=== PATIENT | female | born 1945 | race Caucasian/White ===

== ENCOUNTER → 2016-04-05 | Outpatient (CLI) | payer MEDICARE ==
[~2016-04-05] MED LIST: GLIP5TAB2; GLUC500T; LOPI600T; PERC5TAB8; PRED20TA; SIMV80TA
--- NOTE | 2016-04-05 14:51 | RADONC ---
RADIATION ONCOLOGY FOLLOWUP NOTE DATE: 04/05/2016 CHART NUMBER: [id number]. DIAGNOSIS: Left breast cancer. STAGE: IA, [id number]. ECOG PERFORMANCE STATUS: 0 FOLLOWUP NOTE: Ms. Henriquez is a very pleasant 70-year-old white female with the diagnosis of a stage IA, moderately differentiated infiltrating ductal carcinoma of the left breast who is presenting to us today for routine followup visit 1 year and 1 month post completion of external beam radiation therapy. The patient presents today reporting that she is doing quite well with no complaints at this time related to her radiation therapy or disease. She has no breast or bone pain. REVIEW OF SYSTEMS: The patient's review of systems is noncontributory. She denies nausea, vomiting, fevers, chills, night sweats, diplopia, headaches, anxiety or depression, anorexia, weight loss, visual disturbances, chest pain, urinary or bowel difficulties, bone pain, or neurological problems. PHYSICAL EXAMINATION: The patient is a well-developed, well-nourished white female in no acute distress. HEENT exam is normocephalic, atraumatic. Extraocular movements are intact. There is no palpable cervical, supraclavicular, infraclavicular, axillary, or inguinal lymphadenopathy present. Lungs are clear to auscultation and percussion. Heart has a regular rate and rhythm. Abdomen is benign with no hepatosplenomegaly, masses, or tenderness. Breast examination reveals no masses or discharge bilaterally. Skeletal examination reveals no tenderness to pressure or percussion of the bony skeleton. Extremities reveal no clubbing, cyanosis, or edema. Neurologic exam is grossly intact, as is the remainder of the physical examination. ASSESSMENT: The patient is clinically IZABELA at this time and will be seen by us again in 6 months for further followup. She will also continue to be followed by her other physicians as well. cc: Joyce Mckeon MD *PAULINE Godinez
== END ==
LOC: M ONCR 14:14
PROVIDERS: ATTEND Radiology Radiation Oncology
DX: C50.412 Malignant neoplasm of upper-outer quadrant of left female breast (principal)

== ENCOUNTER → 2016-07-10 | Outpatient (CLI) | payer MEDICARE ==
[~2016-07-10] VITALS: Ht 172.7 cm; Wt 70.8 kg
[~2016-07-10] MED LIST changes: +ATOR1TAB21 PO; +GEMF600T PO; +GLIP5TAB15 PO; +JANU100T PO; +LETR2.5T PO; +LIDOCAINE 2% INJ 100 MG/5 ML SDV (FOR ANES.) As Ordered ONE; +METF500T PO; +MULT1TAB10 PO; +NS 1,000 ML IV ONE; +PHENYLephrine HCL 500 MCG/5 ML (100MCG/ML) SYRINGE (J2370) As Ordered ONE; +PROPOFOL 500 MG/50 ML VIAL As Ordered ONE; +VICT18IN SC; +VITA-130 PO; +VITA100037 PO; +VITA400C2 PO
--- NOTE | 2016-07-10 07:46 | ROOR ---
Patient Name: Missy Henriquez Procedure Date: 07/10/2016 7:28 AM Date of : 1945 Age: 71 Room: [facility] Gender: Female Note Status: Finalized Procedure: Upper GI endoscopy + Biopsies Indications: Heartburn, Family history of gastric cancer Providers: Demarcus Echeverria MD Referring MD: Inocencio Valderrama NP Requesting Provider: Medicines: Monitored Anesthesia Care Complications: No immediate complications. Procedure: Pre-Anesthesia Assessment: - The heart rate, respiratory rate, oxygen saturations, blood pressure, adequacy of pulmonary ventilation, and response to care were monitored throughout the procedure. The Endoscope was introduced through the mouth, and advanced to the second part of duodenum. The upper GI endoscopy was accomplished without difficulty. The patient tolerated the procedure well. Findings: The Z-line was irregular and was found 35 cm from the incisors. Multiple biopsies were obtained with cold forceps for evaluation to rule out Kang's Esophagus randomly at the gastroesophageal junction. Non-severe esophagitis with no bleeding was found 35 cm from the incisors. A small hiatal hernia was present. No other significant abnormalities were identified in a careful examination of the stomach. Biopsies were taken with a cold forceps in the gastric antrum for Helicobacter pylori testing. The exam of the duodenum was otherwise normal. Impression: - Z-line irregular, 35 cm from the incisors. - Non-severe reflux esophagitis. Rule out Kang's esophagus. - Small hiatal hernia. - Multiple biopsies were obtained at the gastroesophageal junction. - Biopsies were taken with a cold forceps for Helicobacter pylori testing. - The examination was otherwise normal. Recommendation: - Patient has a contact number available for emergencies. The signs and symptoms of potential delayed complications were discussed with the patient. Return to normal activities tomorrow. Written discharge instructions were provided to the patient. - Resume previous diet. - Discharge patient to home. - Follow an antireflux regimen. - Continue present medications. - Await pathology results. - Telephone GI clinic for pathology results in 1 week. - Return to referring physician. - Check Portal Online for Path Results.([email or web address]) - The findings and recommendations were discussed with the patient's family. Demarcus Echeverria MD Demarcus Echeverria MD 07/10/2016 7:46:01 AM This report has been signed electronically. Number of Addenda: 0 Note Initiated On: 07/10/2016 7:28 AM Estimated Blood Loss: Estimated blood loss: none.
--- NOTE | 2016-07-10 08:12 | ROOR ---
Patient Name: Missy Henriquez Procedure Date: 07/10/2016 7:28 AM Date of : 1945 Age: 71 Room: [facility] Gender: Female Note Status: Finalized Procedure: Colonoscopy to Cecum + Cold Snare Polypectomy + Hemoclips Indications: Colon cancer screening in patient at increased risk: Colorectal cancer in mother Providers: Demarcus Echeverria MD Referring MD: Inocencio Valderrama NP Requesting Provider: Medicines: Monitored Anesthesia Care Complications: No immediate complications. Procedure: Pre-Anesthesia Assessment: - The heart rate, respiratory rate, oxygen saturations, blood pressure, adequacy of pulmonary ventilation, and response to care were monitored throughout the procedure. The Colonoscope was introduced through the anus and advanced to the cecum, identified by appendiceal orifice and ileocecal valve. The colonoscopy was performed without difficulty. The patient tolerated the procedure well. The quality of the bowel preparation was excellent. Findings: The perianal and digital rectal examinations were normal. Non-bleeding internal hemorrhoids were found during retroflexion. The hemorrhoids were small and Grade I (internal hemorrhoids that do not prolapse). Scattered small-mouthed diverticula were found in the recto-sigmoid colon, sigmoid colon and descending colon. A medium polyp was found in the hepatic flexure. The polyp was sessile. The polyp was removed with a cold snare. Resection and retrieval were complete. To prevent bleeding after the polypectomy, two hemostatic clips were successfully placed (MR conditional). There was no bleeding at the end of the procedure. The exam was otherwise without abnormality on direct and retroflexion views. Impression: - Non-bleeding internal hemorrhoids. - Diverticulosis in the recto-sigmoid colon, in the sigmoid colon and in the descending colon. - One medium polyp at the hepatic flexure, removed with a cold snare. Resected and retrieved. Clips (MR conditional) were placed. - The examination was otherwise normal on direct and retroflexion views. - The exam was otherwise normal to the cecum. Recommendation: - Patient has a contact number available for emergencies. The signs and symptoms of potential delayed complications were discussed with the patient. Return to normal activities tomorrow. Written discharge instructions were provided to the patient. - High fiber diet. - Discharge patient to home. - Continue present medications. - Await pathology results. - Telephone GI clinic for pathology results in 1 week. - Repeat colonoscopy for surveillance based on pathology results. - Check Portal Online for Path Results.([email or web address]) - The findings and recommendations were discussed with the patient's family. Demarcus Echeverria MD Demarcus Echeverria MD 07/10/2016 8:12:29 AM This report has been signed electronically. Number of Addenda: 0 Note Initiated On: 07/10/2016 7:28 AM Estimated Blood Loss: Estimated blood loss: none.
[2016-07-10 08:29] VITALS: BP 117/65
== END | disposition home or self-care (01) ==
LOC: M OPP 06:41
PROVIDERS: ATTEND Internal Medicine Gastroenterology
DX: Z12.11 Encounter for screening for malignant neoplasm of colon (principal); D12.3 Benign neoplasm of transverse colon; K57.30 Diverticulosis of large intestine without perforation or abscess without bleeding; K64.0 First degree hemorrhoids; Z80.0 Family history of malignant neoplasm of digestive organs; R12 Heartburn; K22.8 Other specified diseases of esophagus; K44.9 Diaphragmatic hernia without obstruction or gangrene; K21.0 Gastro-esophageal reflux disease with esophagitis; E78.5 Hyperlipidemia, unspecified; E11.9 Type 2 diabetes mellitus without complications; M19.90 Unspecified osteoarthritis, unspecified site; M81.0 Age-related osteoporosis without current pathological fracture; Z85.3 Personal history of malignant neoplasm of breast; Z92.3 Personal history of irradiation; Z92.21 Personal history of antineoplastic chemotherapy; Z78.0 Asymptomatic menopausal state; Z87.891 Personal history of nicotine dependence; Z88.0 Allergy status to penicillin; Z88.8 Allergy status to other drugs, medicaments and biological substances; Z88.5 Allergy status to narcotic agent; Z91.041 Radiographic dye allergy status; Z91.048 Other nonmedicinal substance allergy status; Z79.84 Long term (current) use of oral hypoglycemic drugs; Z79.899 Other long term (current) drug therapy
CPT/HCPCS: 43239; 45385; 88305; J2370

== ENCOUNTER → 2016-07-27 | Outpatient (CLI) | payer MEDICARE ==
[~2016-07-27] MED LIST changes: -LIDOCAINE 2% INJ 100 MG/5 ML SDV (FOR ANES.) As Ordered ONE; -NS 1,000 ML IV ONE; -PHENYLephrine HCL 500 MCG/5 ML (100MCG/ML) SYRINGE (J2370) As Ordered ONE; -PROPOFOL 500 MG/50 ML VIAL As Ordered ONE
--- NOTE | 2016-07-27 10:16 | REPMRS ---
Patient History The patient states she had a clinical breast exam in May 2016. Patient has history of cancer in the left breast at age 69. Family history of colorectal cancer in mother at age 60, unknown cancer in maternal aunt at age 85, unknown cancer in maternal grandmother at age 70, and colorectal cancer in maternal uncle at age 82. Malignant radio exam breast specimen of the left breast, June 22, 2014. Malignant localization of breast nodule of the left breast, June 22, 2014. Malignant US guided breast biopsy of the left breast, May 05, 2014. Benign excisional biopsy of both breasts. Took hormonal contraceptives for 6 years. Digital Mammo Screening Bilat: July 27, 2016 - Exam #: [id number] Bilateral CC and MLO view(s) were taken. Technologist: Irma Romeoologist Prior study comparison: July 27, 2015, [facility] May 05, 2014, left breast digital mammo diagnostic unilateral [facility]. January 15, 2014, bilateral bilat screen digital mammo, [facility] ([facility] FINDINGS: There are scattered fibroglandular densities. There are stable post treatment changes in the left breast. There has been no other change in the appearance of the mammogram from the prior studies. There is a mild amount of scattered fibroglandular density which is fairly symmetric. There is no interval development of dominant mass, architectural distortion, or clustered microcalcification suggestive of malignancy. ASSESSMENT: BI-RADS/ACR category 1 mammogram. Negative. Recommendation Routine screening mammogram in 1 year (for women over age 40). This mammogram was interpreted with the aid of an FDA-approved computer-aided dectection system. Electronically Signed By: Armando Gamez MD 07/27/16 [id number]
== END ==
LOC: M RAD 09:40
PROVIDERS: ATTEND Radiology Radiation Oncology
DX: Z12.31 Encounter for screening mammogram for malignant neoplasm of breast (principal)

== ENCOUNTER → 2016-10-04 | Outpatient (CLI) | payer MEDICARE ==
[~2016-10-04] MED LIST changes: +GLIP1TAB49 PO; -GLIP5TAB15 PO; -LETR2.5T PO; +LETR2.5T2 PO; -METF500T PO; +METF500T13 PO; -VITA-130 PO; -VITA100037 PO; +VITA100067 PO; -VITA400C2 PO; +VITA400C7 PO; +VITA500T PO
--- NOTE | 2016-10-04 10:59 | RADONC ---
RADIATION ONCOLOGY FOLLOWUP NOTE: DATE: 10/04/2016 CHART NUMBER: [id number]. DIAGNOSIS: Left breast cancer. STAGE: IA, [id number] ECOG PERFORMANCE STATUS: Zero. FOLLOWUP NOTE: Ms. Henriquez is a very pleasant, 71-year-old white female with the diagnosis of a stage IA, moderately differentiated infiltrating ductal carcinoma of the left breast who is presenting to us today for routine followup visit 1 year and 9 months post completion of external beam radiation therapy. The patient presents today reporting that she is doing quite well with no complaints at this time related to her radiation therapy or disease. She has no breast or bone pain. REVIEW OF SYSTEMS: The patient's review of systems is noncontributory. Denies nausea, vomiting, fevers, chills, night sweats, diplopia, headaches, anxiety or depression, anorexia, weight loss, visual disturbances, chest pain, urinary or bowel difficulties, bone pain, or neurological problems. PHYSICAL EXAMINATION: The patient is a well-developed, well-nourished, 71-year-old white female, in no acute distress. HEENT exam is normocephalic, atraumatic. Extraocular movements are intact. There is no palpable cervical, supraclavicular, infraclavicular, axillary, or inguinal lymphadenopathy present. Lungs are clear to auscultation and percussion. Heart has a regular rate and rhythm. Abdomen is benign with no hepatosplenomegaly, masses, or tenderness. Breast examination reveals no masses or discharge bilaterally. Skeletal examination reveals no tenderness to pressure or percussion of the bony skeleton. Extremities reveal no clubbing, cyanosis, or edema. Neurologic exam is grossly intact, as is the remainder of the physical examination. ASSESSMENT: The patient is clinically IZABELA at this time and will be seen by us again in 6 months for further followup. She will also continue to be followed by her other physicians as well. cc: Joyce Mckeon MD, FACP PAULINE Godinez
== END ==
LOC: M ONCR 10:24
PROVIDERS: ATTEND Radiology Radiation Oncology
DX: C50.412 Malignant neoplasm of upper-outer quadrant of left female breast (principal)

== ENCOUNTER → 2017-04-18 | Outpatient (CLI) | payer MEDICARE | LOC: M ONCR 13:30 | DX: C50.412 Malignant neoplasm of upper-outer quadrant of left female breast (principal) | CPT/HCPCS: G0463 ==

== ENCOUNTER 2017-05-25 10:16 | Outpatient (CLI) | payer MEDICARE | END 2017-05-28 | LOC: M CARPUL 10:16 | DX: R01.1 Cardiac murmur, unspecified (principal); R93.1 Abnormal findings on diagnostic imaging of heart and coronary circulation | CPT/HCPCS: 93306 ==

== ENCOUNTER → 2017-07-31 | Outpatient (CLI) | payer MEDICARE | LOC: M RAD 08:41 | DX: Z12.31 Encounter for screening mammogram for malignant neoplasm of breast (principal); C50.912 Malignant neoplasm of unspecified site of left female breast; Z79.899 Other long term (current) drug therapy | CPT/HCPCS: 77067 ==

== ENCOUNTER → 2018-01-28 | Outpatient (CLI) | payer MEDICARE | LOC: M WHC 09:25 | DX: M85.88 Other specified disorders of bone density and structure, other site (principal); M85.80 Other specified disorders of bone density and structure, unspecified site; Z79.899 Other long term (current) drug therapy | CPT/HCPCS: 77080 ==

== ENCOUNTER → 2018-08-01 | Outpatient (CLI) | payer MEDICARE ==
[~2018-08-01] MED LIST changes: +D 50CAP2 PO; +FOSA70TA PO; +GABA-1171 PO; -GEMF600T PO; +GEMF600T5 PO; -GLIP1TAB49 PO; +GLIP5TAB20 PO; +MULTCAP PO; +VITA-157 PO
--- NOTE | 2018-08-01 12:12 | REPMRS ---
Patient History The patient states she had a clinical breast exam in June 2018.Family history of colorectal cancer at age 60 in mother, unknown cancer at age 85 in maternal aunt, colorectal cancer at age 82 in maternal uncle, unknown cancer at age 70 in maternal grandmother. Malignant radio exam breast specimen of the left breast, June 22, 2014. Malignant localization of breast nodule of the left breast, June 22, 2014. Malignant US guided breast biopsy of the left breast, May 05, 2014. Benign excisional biopsy of both breasts. Took hormonal contraceptives for 6 years. Taking tamoxifen for 3 years. 3D TOMOSYNTHESIS WAS PERFORMED. Digital Mammo Screening Bilat: August 01, 2018 - Exam #: [id number] Bilateral CC and MLO view(s) were taken. Technologist: Irma Fishmanologist Prior study comparison: July 31, 2017, bilateral digital mammo screening bilat performed at [facility]. July 27, 2016, bilateral digital mammo screening bilat performed at [facility]. FINDINGS: There are scattered fibroglandular densities. There is no evidence of cancer on this mammogram. No significant changes when compared with prior studies. Assessment: BI-RADS/ACR category 2 mammogram. Benign Findings. Recommendation Routine screening mammogram of both breasts in 1 year (for women over age 40). This mammogram was interpreted with the aid of an FDA-approved computer-aided dectection system. Electronically Signed By: Julian Rogers MD 08/01/18 [id number]
== END ==
LOC: M RAD 10:20
PROVIDERS: ATTEND Obstetrics & Gynecology
DX: Z12.31 Encounter for screening mammogram for malignant neoplasm of breast (principal); Z85.3 Personal history of malignant neoplasm of breast; Z80.0 Family history of malignant neoplasm of digestive organs

== ENCOUNTER → 2018-11-13 | Outpatient (CLI) | payer MEDICARE ==
--- NOTE | 2018-11-15 08:20 | RADONC ---
RADIATION ONCOLOGY FOLLOWUP NOTE DATE: 11/13/2018 CHART NUMBER: [id number] DIAGNOSIS: Left breast cancer. STAGE: Stage I A, [id number] ECOG PERFORMANCE STATUS: 0. FOLLOWUP NOTE: Mrs. Vaughn is a 73-year-old female who has a diagnosis of a moderately differentiated, stage I A, ductal carcinoma involving the left breast who presents today for followup visit after having completed a course of adjuvant radiotherapy on 02/04/2015. She has done well since her radiotherapy and she specifically denies any nausea, vomiting, coughing, sputum production or hemoptysis. Her energy level is excellent and her last mammogram, which I have available to me at this time, was performed on 08/01/2018 and was negative. She reports no other symptoms such as diplopia, headaches, anxiety, depression, anorexia, weight loss, chest pain, urinary or bowel difficulties bone pain or neurologic issues. PHYSICAL EXAMINATION: The patient is a well-developed, well-nourished lady. HEENT: Normocephalic. EOMs intact. PERRLA. Fundi benign. Lungs: Clear to auscultation and percussion. Heart: Regular without murmurs. Abdomen: Without evidence of hepatomegaly, masses, deep abdominal tenderness. Breasts: Exam reveals no masses bilaterally and no significant skin abnormalities. Skeletal system without percussive bony tenderness. Extremities: Without cyanosis, clubbing or edema. Neurologic: Examination grossly physiologic and nonfocal. IMPRESSION: The patient is clinically IZABELA at this time. PLAN: She will be seen by us again in approximately 1 year or p.r.n., and we have advised her to return to her referring physicians as per their instructions. cc: PAULINE Godinez
== END ==
LOC: M ONCR 13:07
PROVIDERS: ATTEND Radiology Radiation Oncology
DX: C50.412 Malignant neoplasm of upper-outer quadrant of left female breast (principal)

== ENCOUNTER → 2019-08-25 | Outpatient (CLI) | payer MEDICARE ==
[~2019-08-25] MED LIST changes: +CENTCHW4 PO; +GLIP5TAB8 PO; +GUAI1TAB72 PO; +METF-839 PO; +VITA-243 PO; +VITA500075 PO; -VITA500T PO; +[UNRECOGNIZED DRUG - CODE] PO; +vitamin c gummies PO
== END ==
LOC: M LABSMTC 10:29
PROVIDERS: ATTEND Anesthesiology
DX: Z03.818 Encounter for observation for suspected exposure to other biological agents ruled out (principal); Z11.59 Encounter for screening for other viral diseases
CPT/HCPCS: C9803; U0003

== ENCOUNTER 2019-08-28 09:44 | Day surgery (SDC) | payer MEDICARE ==
[~2019-08-28] VITALS: Ht 170.2 cm; Wt 70.8 kg
[~2019-08-28 09:44] MED LIST changes: +CEFUROXIME 1MG/0.1ML INTRACAMERAL INJ As Ordered ONE; +DUOVISC (0.50ML VISCOAT/0.55ML PROVISC) OPHTH KIT As Ordered ONE; +LIDOCAINE 1% MDV 20ML VIAL SQ PRN; +MIDAZOLAM INJ 2MG/2ML VIAL (J2250 PER 1MG) As Ordered ONE; +OFLOXACIN 0.3 % (OCUFLOX) OPTH SOL 5ML OD ONE; +PHENYLEPHRINE 2.5% OPHTH SOL 2ML OD ONE; +POVIDONE-IODINE 5% OPHTH PREP SOL 30ML As Ordered ONE; +PROPARACAINE 0.5% OPHTH SOL 15ML OD ONE; +TROPICAMIDE 1% OPHTH SOLN 2ML OD ONE; +fentaNYL 100 MCG/2 ML INJECTION (J3010) As Ordered ONE
== END 2019-08-28 11:34 | disposition home or self-care (01) ==
LOC: M SDC 09:44
PROVIDERS: ATTEND Ophthalmology
DX: H25.11 Age-related nuclear cataract, right eye (principal); Z53.09 Procedure and treatment not carried out because of other contraindication; Z79.899 Other long term (current) drug therapy
CPT/HCPCS: J2250; J3010

== ENCOUNTER → 2019-09-08 | Outpatient (CLI) | payer MEDICARE ==
[~2019-09-08] MED LIST changes: -CEFUROXIME 1MG/0.1ML INTRACAMERAL INJ As Ordered ONE; -DUOVISC (0.50ML VISCOAT/0.55ML PROVISC) OPHTH KIT As Ordered ONE; -LIDOCAINE 1% MDV 20ML VIAL SQ PRN; -MIDAZOLAM INJ 2MG/2ML VIAL (J2250 PER 1MG) As Ordered ONE; -OFLOXACIN 0.3 % (OCUFLOX) OPTH SOL 5ML OD ONE; -PHENYLEPHRINE 2.5% OPHTH SOL 2ML OD ONE; -POVIDONE-IODINE 5% OPHTH PREP SOL 30ML As Ordered ONE; -PROPARACAINE 0.5% OPHTH SOL 15ML OD ONE; -TROPICAMIDE 1% OPHTH SOLN 2ML OD ONE; -fentaNYL 100 MCG/2 ML INJECTION (J3010) As Ordered ONE
== END ==
LOC: M LABSMTC 12:10
PROVIDERS: ATTEND Anesthesiology
DX: Z01.818 Encounter for other preprocedural examination (principal); Z11.59 Encounter for screening for other viral diseases
CPT/HCPCS: C9803; U0003

== ENCOUNTER 2019-09-11 08:18 | Day surgery (SDC) | payer MEDICARE ==
[~2019-09-11] VITALS: Ht 170.2 cm; Wt 71.2 kg
[~2019-09-11 08:18] MED LIST changes: +CEFUROXIME 1MG/0.1ML INTRACAMERAL INJ As Ordered ONE; +DUOVISC (0.50ML VISCOAT/0.55ML PROVISC) OPHTH KIT As Ordered ONE; +OFLOXACIN 0.3 % (OCUFLOX) OPTH SOL 5ML OD ONE; +PHENYLEPHRINE 2.5% OPHTH SOL 2ML OD ONE; +POVIDONE-IODINE 5% OPHTH PREP SOL 30ML As Ordered ONE; +PROPARACAINE 0.5% OPHTH SOL 15ML OD ONE; +TROPICAMIDE 1% OPHTH SOLN 2ML OD ONE
[2019-09-11] MEDS ORDERED: MIDAZOLAM INJ 2MG/2ML VIAL (J2250 PER 1MG) As Ordered ONE (09:37)
[2019-09-11] MEDS ORDERED: fentaNYL 100 MCG/2 ML INJECTION (J3010) As Ordered ONE (09:37)
[2019-09-11] MEDS ORDERED: HumaLOG INSULIN (NovoLOG) PER UNIT As Ordered ONE (09:45)
[2019-09-11] MEDS ORDERED: BSS IRR 500ML/OMIDRIA 4ML IRR BAG (OR ONLY) (J1097 PER ML) As Ordered ONE (09:49)
[2019-09-11] MEDS ORDERED: HumaLOG INSULIN (NovoLOG) PER UNIT SC ONE (10:00)
[2019-09-11 10:45] VITALS: BP 133/63
== END 2019-09-11 11:45 | disposition home or self-care (01) ==
LOC: M SDC 08:18
PROVIDERS: ATTEND Ophthalmology
DX: H25.11 Age-related nuclear cataract, right eye (principal); E11.9 Type 2 diabetes mellitus without complications; E78.5 Hyperlipidemia, unspecified; M10.9 Gout, unspecified; K21.9 Gastro-esophageal reflux disease without esophagitis; Z79.899 Other long term (current) drug therapy; Z87.891 Personal history of nicotine dependence; Z79.84 Long term (current) use of oral hypoglycemic drugs; Z85.3 Personal history of malignant neoplasm of breast; Z92.21 Personal history of antineoplastic chemotherapy; Z92.3 Personal history of irradiation; Z91.041 Radiographic dye allergy status; Z88.8 Allergy status to other drugs, medicaments and biological substances
CPT/HCPCS: 66984; J1097; J2250; J3010; V2632

== ENCOUNTER → 2019-10-02 | Outpatient (CLI) | payer MEDICARE ==
[~2019-10-02] MED LIST changes: -CEFUROXIME 1MG/0.1ML INTRACAMERAL INJ As Ordered ONE; -DUOVISC (0.50ML VISCOAT/0.55ML PROVISC) OPHTH KIT As Ordered ONE; -OFLOXACIN 0.3 % (OCUFLOX) OPTH SOL 5ML OD ONE; -PHENYLEPHRINE 2.5% OPHTH SOL 2ML OD ONE; -POVIDONE-IODINE 5% OPHTH PREP SOL 30ML As Ordered ONE; -PROPARACAINE 0.5% OPHTH SOL 15ML OD ONE; -TROPICAMIDE 1% OPHTH SOLN 2ML OD ONE
--- NOTE | 2019-10-26 13:08 | REPMRS ---
Patient History The patient states she has not had a clinical breast exam in over a year. Patient has history of cancer in the left breast at age 69. Family history of colorectal cancer at age 60 in mother, pancreatic cancer at age 85 in maternal aunt, colorectal cancer at age 82 in maternal uncle, pancreatic cancer at age 70 in maternal grandmother. Malignant radio exam breast specimen of the left breast, June 22, 2014. Malignant localization of breast nodule of the left breast, June 22, 2014. Malignant US guided breast biopsy of the left breast, May 05, 2014. Benign excisional biopsy of both breasts. Took hormonal contraceptives for 6 years. Took tamoxifen for 5 years. Digital Woman Screen Mammo: October 02, 2019 - Exam #: [id number] Bilateral CC and MLO view(s) were taken. Technologist: Roma Cooper, Technologist Prior study comparison: August 01, 2018, bilateral digital mammo screening bilat, performed at [facility]. July 31, 2017, bilateral digital mammo screening bilat, performed at [facility]. July 27, 2016, bilateral digital mammo screening bilat, performed at [facility]. FINDINGS: There are scattered fibroglandular densities. The Volpara volumetric breast density category is:B. There are stable post treatment changes in the left breast. There has been no change in the appearance of the mammogram from the prior studies. There is a mild amount of scattered fibroglandular density which is fairly symmetric. There is no interval development of dominant mass, architectural distortion, or grouped microcalcification suggestive of malignancy. 3-D tomosynthesis shows no additional findings. Assessment: BI-RADS/ACR category 2 mammogram. Benign Findings. Recommendation Routine screening mammogram of both breasts in 1 year (for women over age 40). This mammogram was interpreted with the aid of an FDA-approved computer-aided dectection system. Electronically Signed By: Armando Gamez MD 10/26/19 [id number]
== END ==
LOC: M WHC 09:27
PROVIDERS: ATTEND Internal Medicine Hematology & Oncology
DX: Z12.31 Encounter for screening mammogram for malignant neoplasm of breast (principal); Z85.3 Personal history of malignant neoplasm of breast; Z80.0 Family history of malignant neoplasm of digestive organs

== ENCOUNTER → 2019-11-12 | Outpatient (CLI) | payer MEDICARE ==
--- NOTE | 2019-11-12 13:32 | RADONC ---
Radiation Oncology Hx/FUP Radiation Oncology Consult Date of Service: Nov 12, 2019 Pt Identifier Missy Henriquez is a 74 year old female seen for a followup visit today at the department of radiation oncology for a history of left breast cancer pT1cN0(sn)M0 ER+ IA/HER2- grade 2 s/p lumpectomy, adjuvant AC+T chemotherapy and adjuvant whole breast radiation 48.6 Gy to the left breast, followed by 12 Gy tumor bed boost completed 01/05/15. Diagnosis/Treatment History Oncologic History As above Interval History Feels well today, no complaints. Does self exams. Gets her mammograms, last September 2019, was negative. 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 Appetite good and weight stable. Current Therapy Surveillance Stage [id number] Er+ IA/HER2- grade 2 stage IA Social History: Former smoker, quit 1997 Does not drink Allergies / Meds Allergies: Coded Allergies: Contrast Media (Verified Allergy, Intermediate, rash, 08/22/19) adhesive (Verified Allergy, Intermediate, rash, 08/22/19) meperidine (Verified Allergy, Intermediate, rash, 08/22/19) Home Meds Active Scripts Letrozole (Letrozole) 2.5 Mg Tab, 2.5 MG PO DAILY for 30 Days, #30 TAB 5 Refills Prov:TRIPP COBOS MD 10/31/19 Reported Medications Multivit-Min/Iron/Folic/Vit K1 (Centrum Chewables Adults Tab) 1 Each Tab.chew, 1 CHW PO, CHW 08/22/19 Guaifen/Phenyleph/Acetaminophn (Tylenol Sinus Severe Caplet) 1 Each Tablet, 1 EACH PO BIDP PRN for sinus issues, TAB 05/15/19 Cholecalciferol (Vitamin D3) (Vitamin D3) 125 Mcg Capsule, 125 MCG PO DAILY, CAP 05/15/19 [vitamin c gummies] No Conflict Check, 500 MG PO DAILY 05/15/19 Metformin HCl (Metformin HCl) 500 Mg Tablet, 1500 MG PO QHS for 30 Days, #60 TAB 02/04/19 Vitamin E (Dl,Tocopheryl Acet) (Vitamin E) 400 Unit Capsule, 400 UNIT PO, CAP 08/01/18 Gabapentin (Gabapentin) 100 Mg Cap, 200 MG PO QPM 01/31/18 Sitagliptin Phosphate (Januvia) 100 Mg Tab, 100 MG PO DAILY, TAB 06/28/16 Gemfibrozil (Gemfibrozil) 600 Mg Tab, 600 MG PO BID, TAB 06/28/16 Glipizide (Glipizide ER) 5 Mg Tab, 30 MG PO QPM, TAB 06/28/16 Liraglutide (Victoza 2-Jacoby) 18 Mg/3 Ml Inj, 1.8 ML SC QPM, INJ 06/28/16 Atorvastatin Calcium (Atorvastatin Calcium) 20 Mg Tab, 20 MG PO DAILY, TAB 06/28/16 Review of Systems Review of Systems Constitutional: Denies: ROS Unabtainable, Chills, Fever, Malaise, Night Sweats, Weakness, Fatigue, Weight Loss, Lethargy, Normal appetite, Other symptoms Eyes: Denies: Pain, Vision change, Conjunctivae inflammation, Eyelid inflammation, Redness, Other Skin: Denies: Rash, Lesions, Jaundice, Bruising, Other Breast: Denies: New Breast Lumps / Masses, Nipple Retraction, Nipple Discharge, Breast Skin Changes, Breast Pain or Tenderness, Other Breast Complaints Pulmonary: Denies: Dyspnea, Cough, Pleuritic Chest Pain, Other Symptoms Cardiovascular: Denies: Chest Pain, Palpitations, Orthopnea, Paroxysmal Noc. Dyspnea, Edema, Lt Headedness, Other Symptoms Gastrointestinal: Denies: Nausea, Vomiting, Abdominal Pain, Diarrhea, Constipation, Melena, Hematochezia, Other Symptoms Genitourinary: Denies: Dysuria, Frequency, Incontinence, Hematuria, Retention, Other Symptoms Hematologic: Denies: Bruising, Bleeding Excessively, Petecchia, Purpura, Enlarged Lymph Nodes, Other Hematologic Endocrine: Denies: Polydipsia, Polyphagia, Polyuria, Heat Intolerance, Cold Intolerance, Other Endocrine Sx Musculoskeletal: Denies: Neck pain, Shoulder pain, Arm pain, Back pain, Hand pain, Leg pain, Foot pain, Joint pain, Muscle pain, Spasms, Gout, Joint sweling, Muscle stiffness, Midthoracic pain, Other Neurological: Denies: Weakness, Numbness, Incoordination, Change in Speech, Confusion, Seizures, Other Symptoms Psych: Denies: Mood Normal, Anxiety, Depression, Memory Issues, Thoughts of Self Harm, Anger, Thoughts of harming Other, Other Psych Physical Examination Vital Signs Ht 67" Wt 160lb T 97.3 P 110 RR 16 BP 130/66 O2 96% General Exam: Positive: Alert, No Acute Distress Eye Exam: Positive: PERRLA, EOMI ENT EXAM: Positive: Atraumatic, Pharynx Normal Neck Exam: Positive: Supple; Negative: Lymphadenopathy Chest Exam: Positive: Clear to auscultation, Normal air movement Heart Exam: Positive: Rate Normal, Regular Rhythm Breast Exam: Positive: Symmetric Bilaterally (ptotic); Negative: Lumps or Masses (left breast with palpable fibrosis in the 3:00 position, No palpable lesions BL in the breasts or axillae), Nipple Discharge, Skin Changes Abdomen Exam: Positive: Normal bowel sounds, Soft; Negative: Tenderness Extremity Exam: Negative: Edema Skin Exam: Positive: Nl turgor and temperature; Negative: Rash Neuro Exam: Positive: Normal Gait, Normal Speech, Cranial Nerves 3-12 NL Psych Exam: Positive: Mental status NL, Mood NL, Anxiety Diagnostic and Laboratory Diagnostic Review Radiologic images, relevant labs and pathology reports were personally reviewed and discussed with Ms. Henriquez. Assessment and Plan Impression Assessment Ms. Henriquez is a 74 year old female seen for a followup visit today at the department of radiation oncology for a history of left breast cancer pT1cN0(sn)M0 ER+ IA/HER2- grade 2 s/p lumpectomy, adjuvant AC+T chemotherapy and adjuvant whole breast radiation 48.6 Gy to the left breast, followed by 12 Gy tumor bed boost completed 01/05/15. She has no evidence of recurrent disease on exam today. She is approaching 5 years from the completion of adjuvant RT. She has some paIpable fibrosis in the left lateral breast as her only RT sequelae. 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 She opted for the latter. She understands the importance of mammography and self exam as well. Performance Status ECOG 0 Plan Follow up as needed Has established follow up with medical oncology, gynecology and radiology for screening mammograms Ms. Henriquez was encouraged to call with questions or concerns in the interim period. DENITA GARCES MD Nov 12, 2019 13:32
== END ==
LOC: M ONCR 12:55
PROVIDERS: ATTEND General Practice
DX: C50.412 Malignant neoplasm of upper-outer quadrant of left female breast (principal)

== ENCOUNTER → 2020-02-06 | Outpatient (CLI) | payer MEDICARE ==
--- NOTE | 2020-02-06 12:46 | DEXAMM ---
INDICATION: OSTEOPENIA,HX LT BREAST CA. COMPARISON: Most recent comparison study January 28, 2018. The most remote prior study is dated December 08, 2003.. TECHNIQUE: Bone density was measured using dual-energy x-ray absorptionmetry (DEXA). FINDINGS: AP SPINE L1-L4 BMD 1.120 g/cm2 Young Adult T-Score -0.6 Age Matched Z-Score 1.1. LT FEMUR, TOTAL BMD 0.758 g/cm2 Young Adult T-Score -2.0 Age Matched Z-Score -0.4. LT NECK BMD 0.721 g/cm2 Young Adult T-Score -2.3 Age Matched Z-Score -0.5. RT FEMUR, TOTAL BMD 0.743 g/cm2 Young Adult T-Score -2.1 Age Matched Z-Score -0.5. RT NECK BMD 0.736 g/cm2 Young Adult T-Score -2.2 Age Matched Z-Score -0.4. IMPRESSION: There is normal bone density of the spine. There is low bone density of the left hip. There is low bone density of the right hip. The density of the spine has increased 0.8% since the initial exam on December 08, 2003. The density of the spine decreased 1.0% since most recent exam on January 28, 2018. The density of the left hip has decreased 8.3% since initial exam on December 08, 2003. The density of the left hip has increased 0.0% since most recent exam on January 28, 2018. The density of the right hip has decreased 14.0% since the initial exam on December 08, 2003. The density of the right hip has decreased 3.6% since the most recent exam on January 28, 2018. FOLLOW-UP: Recommendation for the next bone density exam: 2 years. <Electronically signed by Armando Gamez > 02/06/20 [id number]
== END ==
LOC: M WHC 10:28
PROVIDERS: ATTEND Internal Medicine Hematology & Oncology
DX: M85.851 Other specified disorders of bone density and structure, right thigh (principal); M85.852 Other specified disorders of bone density and structure, left thigh; Z85.3 Personal history of malignant neoplasm of breast

== ENCOUNTER → 2020-10-07 | Outpatient (CLI) | payer MEDICARE ==
[~2020-10-07] MED LIST changes: +LOPI600T PO; -VITA-157 PO; +VITAE40CA PO
--- NOTE | 2020-10-07 13:56 | REPMRS ---
Patient History The patient states she had a clinical breast exam in June 2020. Family history of colorectal cancer at age 60 in mother, pancreatic cancer at age 85 in maternal aunt, colorectal cancer at age 82 in maternal uncle, pancreatic cancer at age 70 in maternal grandmother. Malignant radio exam breast specimen of the left breast, June 22, 2014. Malignant localization of breast nodule of the left breast, June 22, 2014. Malignant US guided breast biopsy of the left breast, May 05, 2014. Benign excisional biopsy of both breasts. Took hormonal contraceptives for 6 years. Took tamoxifen for 5 years. Tomosynthesis is performed. Volpara breast density is b. No breast complaints today Patient signed the MRS sheet 1st covid vaccine 04/21/20-right arm-Pfizer 2nd covid vaccine 05/12/20-right arm Priors on PACS Patient Identification Verified Digital Woman Screen Mammo: October 07, 2020 - Exam #: [id number] Bilateral CC and MLO view(s) were taken. Technologist: Estela Morrison, Technologist Prior study comparison: October 02, 2019, bilateral digital woman screen mammo performed at [facility]. August 01, 2018, bilateral digital mammo screening bilat, performed at [facility]. FINDINGS: There are scattered fibroglandular densities. There has been no change in the appearance of the mammogram from the prior studies. There is a mild amount of residual fibroglandular tissue which is fairly symmetric. There is no interval development of dominant mass, architectural distortion, or clustered microcalcification suggestive of malignancy. There are stable post treatment changes in the upper left breast.] No significant changes when compared with prior studies. Assessment: BI-RADS/ACR category 1 mammogram. Negative Mammogram. Recommendation Routine screening mammogram in 1 year (for women over age 40). This mammogram was interpreted with the aid of an FDA-approved computer-aided dectection system. Electronically Signed By: Julian Rogers MD 10/07/20 2281
== END ==
LOC: M WHC 13:04
PROVIDERS: ATTEND Specialist
DX: Z12.31 Encounter for screening mammogram for malignant neoplasm of breast (principal); Z85.3 Personal history of malignant neoplasm of breast; Z92.21 Personal history of antineoplastic chemotherapy; R92.2 Inconclusive mammogram

== ENCOUNTER → 2021-02-09 | Outpatient (CLI) | payer MEDICARE ==
[~2021-02-09] MED LIST changes: +C-50CHW5 PO; +[UNRECOGNIZED DRUG - CODE] PO
== END ==
LOC: M WHC 11:01
PROVIDERS: ATTEND Nurse Practitioner Adult Health
DX: M25.759 Osteophyte, unspecified hip (principal); Z53.9 Procedure and treatment not carried out, unspecified reason

== ENCOUNTER → 2021-10-19 | Outpatient (CLI) | payer MEDICARE | LOC: M WHC 09:02 | PROVIDERS: ATTEND Specialist | DX: C50.912 Malignant neoplasm of unspecified site of left female breast (principal) | CPT/HCPCS: 77066; G0279 ==

== ENCOUNTER → 2022-02-06 | Outpatient (CLI) | payer MEDICARE ==
[~2022-02-06] MED LIST changes: +ALEN70TA87 PO; -FOSA70TA PO
== END ==
LOC: M WHC 11:13
PROVIDERS: ATTEND Specialist
DX: M85.851 Other specified disorders of bone density and structure, right thigh (principal); M85.852 Other specified disorders of bone density and structure, left thigh; C50.919 Malignant neoplasm of unspecified site of unspecified female breast

== ENCOUNTER 2022-08-15 06:13 | Day surgery (SDC) | payer MEDICARE ==
[~2022-08-15] VITALS: Ht 170.2 cm; Wt 67.6 kg
[~2022-08-15 06:13] MED LIST changes: +CVS-161 PO; +EZET10TA21 PO; +GABA-283 PO; +PROPARACAINE 0.5% OPHTH SOL 15ML OS ONE; +VITA100093 PO
[2022-08-15] MEDS ORDERED: LIDOCAINE 1% SDV 5ML VIAL As Ordered ONE (06:33)
[2022-08-15] MEDS ORDERED: CEFUROXIME 1MG/0.1ML INTRACAMERAL INJ As Ordered ONE (06:33)
[2022-08-15] MEDS ORDERED: BSS IRR 500ML/OMIDRIA 4ML IRR BAG (OR ONLY) As Ordered ONE (06:34)
[2022-08-15] MEDS ORDERED: INSULIN LISPRO (NovoLOG) PER UNIT SC PRN (06:40)
[2022-08-15] MEDS ORDERED: LIDOCAINE 1% SDV 5ML VIAL SC PRN (06:40)
[2022-08-15] MEDS: CYCLOPENTOLATE 1% OPHTH SOLN 2ML BTL OS SCH ×3 (06:49→06:57)
[2022-08-15] MEDS: TROPICAMIDE 1% OPHTH SOLN 15ML OS SCH ×3 (06:49→06:57)
[2022-08-15] MEDS: OFLOXACIN 0.3 % (OCUFLOX) OPTH SOL 5ML OS SCH ×3 (06:49→06:57)
[2022-08-15] MEDS: PHENYLEPHRINE 2.5% OPHTH SOL 2ML OS SCH ×3 (06:49→06:57)
[2022-08-15] MEDS ORDERED: MIDAZOLAM INJ 2MG/2ML VIAL As Ordered ONE (07:04)
[2022-08-15 07:56] VITALS: BP 130/60; TEMP 97; O2SAT 95
== END 2022-08-15 08:27 | disposition home or self-care (01) ==
LOC: M SDC 06:13
PROVIDERS: ATTEND Ophthalmology
DX: H25.12 Age-related nuclear cataract, left eye (principal); E11.9 Type 2 diabetes mellitus without complications; M10.9 Gout, unspecified; K21.9 Gastro-esophageal reflux disease without esophagitis; Z91.041 Radiographic dye allergy status; Z88.8 Allergy status to other drugs, medicaments and biological substances; Z87.891 Personal history of nicotine dependence; Z92.21 Personal history of antineoplastic chemotherapy; Z79.899 Other long term (current) drug therapy; Z79.84 Long term (current) use of oral hypoglycemic drugs; Z92.3 Personal history of irradiation
CPT/HCPCS: 66984; J0697; J1097; J2250; V2632

== ENCOUNTER → 2022-10-20 | Outpatient (CLI) | payer MEDICARE ==
[~2022-10-20] MED LIST changes: -GABA-283 PO; +GABA-284 PO; -PROPARACAINE 0.5% OPHTH SOL 15ML OS ONE
== END ==
LOC: M WHC 12:01
PROVIDERS: ATTEND Specialist
DX: Z12.31 Encounter for screening mammogram for malignant neoplasm of breast (principal); Z85.3 Personal history of malignant neoplasm of breast

== ENCOUNTER → 2023-03-07 | Outpatient (CLI) | payer MEDICARE ==
[~2023-03-07] MED LIST changes: +GLIP5TAB17 PO; -GLIP5TAB8 PO
[2023-03-07 17:28] LABS: HEMOGLOBIN A1c 5.9 % (4.0-6.0)
[2023-03-07 17:30] LABS: ALBUMIN 4.2 G/DL (3.2-5.2); ALKALINE PHOSPHATASE 82 U/L (46-116); ALT/SGPT 16 U/L (7.0-40); AST/SGOT 19 U/L (<34); BILIRUBIN,TOTAL 0.4 MG/DL (0.3-1.2); BLOOD UREA NITROGEN 24 MG/DL (9-23); CALCIUM LEVEL 9.4 MG/DL (8.3-10.6); CARBON DIOXIDE LEVEL 25 MMOL/L (20-31); CHLORIDE LEVEL 107 MMOL/L (98-107); CHOLESTEROL LEVEL 169 MG/DL (<200); CHOLESTEROL RISK RATIO 3.85 (<5); GLOMERULAR FILTRATION RATE > 60.0 (>39); GLUCOSE, FASTING 162 MG/DL (74-106); HDL CHOLESTEROL 43.8 MG/DL (>40); NON-HDL-C 125.2 MG/DL; POTASSIUM SERUM 4.1 MMOL/L (3.5-5.1); SODIUM LEVEL 140 MMOL/L (136-145); TRIGLYCERIDES LEVEL 216 MG/DL (<150)
[2023-03-07 17:31] LABS: THYROID STIMULATING HORMONE 5.638 uIU/ML (0.55-4.78); TOTAL 25(OH) VITAMIN D 57.1 NG/ML (20.0-100.0)
== END ==
LOC: M WUC 10:39
PROVIDERS: ATTEND Nurse Practitioner Adult Health
DX: E11.42 Type 2 diabetes mellitus with diabetic polyneuropathy (principal); E55.9 Vitamin D deficiency, unspecified; E78.2 Mixed hyperlipidemia

== ENCOUNTER → 2023-05-16 | Outpatient (CLI) | payer MEDICARE | LOC: M PLAIMG 09:37 | PROVIDERS: ATTEND Nurse Practitioner Adult Health | DX: R01.1 Cardiac murmur, unspecified (principal); I36.0 Nonrheumatic tricuspid (valve) stenosis ==

== ENCOUNTER → 2023-06-26 | Outpatient (CLI) | payer MEDICARE ==
[2023-06-26 14:31] LABS: HEMOGLOBIN A1c 5.5 % (4.0-6.0)
[2023-06-26 14:33] LABS: ALBUMIN 3.9 G/DL (3.2-5.2); ALKALINE PHOSPHATASE 98 U/L (46-116); ALT/SGPT 9 U/L (7.0-40); AST/SGOT 18 U/L (<34); BILIRUBIN,TOTAL 0.4 MG/DL (0.3-1.2); BLOOD UREA NITROGEN 21 MG/DL (9-23); CALCIUM LEVEL 9.8 MG/DL (8.3-10.6); CARBON DIOXIDE LEVEL 26 MMOL/L (20-31); CHLORIDE LEVEL 105 MMOL/L (98-107); CREATININE FOR GFR 0.89 MG/DL (0.55-1.30); GLOMERULAR FILTRATION RATE > 60.0 (>39); GLUCOSE, FASTING 104 MG/DL (74-106); POTASSIUM SERUM 4.2 MMOL/L (3.5-5.1); SODIUM LEVEL 142 MMOL/L (136-145); TOTAL PROTEIN 6.8 G/DL (5.7-8.2)
== END ==
LOC: M WUC 09:38
PROVIDERS: ATTEND Nurse Practitioner Adult Health
DX: E11.42 Type 2 diabetes mellitus with diabetic polyneuropathy (principal); E78.2 Mixed hyperlipidemia; R01.1 Cardiac murmur, unspecified; E55.9 Vitamin D deficiency, unspecified; G62.9 Polyneuropathy, unspecified; M85.80 Other specified disorders of bone density and structure, unspecified site; Z80.0 Family history of malignant neoplasm of digestive organs; Z85.3 Personal history of malignant neoplasm of breast; Z28.21 Immunization not carried out because of patient refusal; Z68.20 Body mass index [BMI] 20.0-20.9, adult
CPT/HCPCS: 36415; 80053; 83036; G0463

== ENCOUNTER → 2023-10-22 | Outpatient (CLI) | payer MEDICARE ==
[~2023-10-22] MED LIST changes: +SEMA0.257
== END ==
LOC: M WHC 10:56
PROVIDERS: ATTEND Specialist
DX: Z12.31 Encounter for screening mammogram for malignant neoplasm of breast (principal); Z85.3 Personal history of malignant neoplasm of breast; R92.313 Mammographic fatty tissue density, bilateral breasts

== ENCOUNTER → 2023-11-16 | Outpatient (CLI) | payer MEDICARE ==
[2023-11-16 18:36] LABS: ALKALINE PHOSPHATASE 108 U/L (46-116); ALT/SGPT 15 U/L (7.0-40); AST/SGOT 24 U/L (<34); BILIRUBIN,TOTAL 0.6 MG/DL (0.3-1.2); BLOOD UREA NITROGEN 30 MG/DL (9-23); CALCIUM LEVEL 9.9 MG/DL (8.3-10.6); CARBON DIOXIDE LEVEL 26 MMOL/L (20-31); CHLORIDE LEVEL 108 MMOL/L (98-107); CHOLESTEROL LEVEL 156 MG/DL (<200); CHOLESTEROL RISK RATIO 3.97 (<5); CREATININE FOR GFR 0.95 MG/DL (0.55-1.30); GLOMERULAR FILTRATION RATE > 60.0 (>39); GLUCOSE, FASTING 131 MG/DL (74-106); HDL CHOLESTEROL 39.2 MG/DL (>40); LDL CHOLESTEROL 81.8 MG/DL (<100); NON-HDL-C 116.8 MG/DL; POTASSIUM SERUM 4.5 MMOL/L (3.5-5.1); SODIUM LEVEL 139 MMOL/L (136-145); TOTAL PROTEIN 7.2 G/DL (5.7-8.2); TRIGLYCERIDES LEVEL 175 MG/DL (<150)
[2023-11-16 18:39] LABS: FREE T4 0.92 NG/DL (0.89-1.76)
[2023-11-16 18:44] LABS: HEMOGLOBIN A1c 5.9 % (4.0-6.0)
== END ==
LOC: M WUC 10:54
PROVIDERS: ATTEND Nurse Practitioner Adult Health
DX: E11.42 Type 2 diabetes mellitus with diabetic polyneuropathy (principal); E03.8 Other specified hypothyroidism; E55.9 Vitamin D deficiency, unspecified; E78.2 Mixed hyperlipidemia

== ENCOUNTER → 2024-11-04 | Outpatient (CLI) | payer MEDICARE ==
[~2024-11-04] MED LIST changes: -EZET10TA21 PO; +EZET10TA57 PO; +GLIP-318 PO; -GLIP5TAB20 PO
== END ==
LOC: M WHC 12:32
PROVIDERS: ATTEND Specialist
DX: Z12.31 Encounter for screening mammogram for malignant neoplasm of breast (principal); R92.323 Mammographic fibroglandular density, bilateral breasts; M81.0 Age-related osteoporosis without current pathological fracture

== ENCOUNTER → 2024-11-06 | Outpatient (CLI) | payer MEDICARE ==
[~2024-11-06] MED LIST changes: +EZET10TA21 PO; -EZET10TA57 PO
[2024-11-06 13:13] LABS: ESTIMATED AVERAGE GLUCOSE 137.0 MG/DL (60-110)
[2024-11-06 13:16] LABS: CREATININE, URINE 152.8 MG/DL; MALB URINE SIEMENS 11.0 MG/L; MAU/CREAT RATIO 7.1 MCG/MG (0.0-30.0)
[2024-11-06 13:17] LABS: ALT/SGPT 22.0 U/L (7.0-40); AST/SGOT 32.0 U/L (<34); CALCIUM LEVEL 10.0 MG/DL (8.3-10.6); CARBON DIOXIDE LEVEL 29.0 MMOL/L (20-31); CHLORIDE LEVEL 104.0 MMOL/L (98-107); CHOLESTEROL LEVEL 247.0 MG/DL (<200); CHOLESTEROL RISK RATIO 5.92 (<5); CREATININE FOR GFR 0.94 MG/DL (0.55-1.30); GLOMERULAR FILTRATION RATE 62.5 (>39); LDL CHOLESTEROL 157.9 MG/DL (<100); NON-HDL-C 205.3 MG/DL; POTASSIUM SERUM 4.6 MMOL/L (3.5-5.1); SODIUM LEVEL 145.0 MMOL/L (136-145); TRIGLYCERIDES LEVEL 237.0 MG/DL (<150)
[2024-11-06 13:19] LABS: FREE T4 0.91 NG/DL (0.89-1.76)
== END ==
LOC: M WUC 09:12
PROVIDERS: ATTEND Nurse Practitioner Adult Health
DX: E11.42 Type 2 diabetes mellitus with diabetic polyneuropathy (principal); E03.8 Other specified hypothyroidism; E78.2 Mixed hyperlipidemia; E55.9 Vitamin D deficiency, unspecified